=== PATIENT | male | born 1955 | race Caucasian/White ===

== ENCOUNTER 2017-04-24 09:24 | Emergency (ER) | payer OTHER ==
[~2017-04-24 09:24] MED LIST: FOLBIC TABLET1 EACH PO; GLUCOPHAGE850 MG PO; GLYBURIDE 5MG TA5 MG PO; HUMULIN N100 UNIT/1 SC; LACTINEX1 EACH PO; LANTUS100 UNIT/1 SC; LASIX20 MG PO; NORVASC5 MG PO; PRAVACHOL20 MG PO; TOPROL XL100 MG PO; TOUJEO SOLOSTAR SC; ZESTRIL20 MG PO
== END 2017-04-24 10:40 | disposition home or self-care (01) ==
LOC: FER 09:24
DX: S53.401A Unspecified sprain of right elbow, initial encounter (principal); E11.9 Type 2 diabetes mellitus without complications; I10 Essential (primary) hypertension; Z79.4 Long term (current) use of insulin; Z23 Encounter for immunization; Z86.14 Personal history of Methicillin resistant Staphylococcus aureus infection; Z95.1 Presence of aortocoronary bypass graft; W17.89XA Other fall from one level to another, initial encounter
CPT/HCPCS: 73060; 90471; 90715

== ENCOUNTER 2020-12-01 03:11 | Emergency (ER) | payer MEDICARE, OTHER ==
[2020-12-01 04:54] LABS: BASOPHIL 0.8 % (0-2); EOSINOPHIL 1.3 % (0-7); HCT 30.2 % (42.0-52.0); HGB 8.7 g/dl (13.2-18.0); LYMPHOCYTE 12.7 % (15-48); MCH 23.3 pg (25.0-31.0); MCHC 28.8 g/dL (32.0-36.0); NEUTROPHIL 75.4 % (41-80); NRBC 0; PLT 253 K/uL (150-400); RBC 3.73 M/uL (4.70-6.00); RDW 16.3 % (11.5-14.0)
[2020-12-01 05:07] LABS: ALBUMIN 3.3 g/dL (3.4-5.0); BILIRUBIN - TOTAL 0.4 mg/dL (0.2-1.0); BUN/CREAT RATIO (CALC) 24.8 RATIO; CREATININE 1.49 mg/dL (0.67-1.17); GLOBULIN (CALCULATION) 4.5 g/dL; POTASSIUM 4.5 mmol/L (3.5-5.1); TOTAL PROTEIN 7.8 g/dL (6.4-8.2)
[2020-12-01 05:15] LABS: LACTIC ACID 1.8 mmol/L (0.4-1.9)
[2020-12-01] MEDS ORDERED: KEFLEX250 MG PO (08:21)
== END 2020-12-01 09:22 | disposition home or self-care (01) ==
LOC: FER 03:11
PROVIDERS: Emergency Medicine Emergency Medical Services; Nurse Practitioner
DX: E11.649 Type 2 diabetes mellitus with hypoglycemia without coma (principal); E78.5 Hyperlipidemia, unspecified; I10 Essential (primary) hypertension; Z86.14 Personal history of Methicillin resistant Staphylococcus aureus infection; Z95.5 Presence of coronary angioplasty implant and graft; Z98.890 Other specified postprocedural states; Z79.899 Other long term (current) drug therapy; Z79.82 Long term (current) use of aspirin; Z88.8 Allergy status to other drugs, medicaments and biological substances; Z79.4 Long term (current) use of insulin
CPT/HCPCS: 36415; 71045; 73590; 80053; 83605; 84484; 85025; 86140; 87040; 93005; J3370; J7050

== ENCOUNTER 2021-03-15 17:09 | Emergency (ER) | payer MEDICARE, OTHER ==
[~2021-03-15 17:09] MED LIST changes: +KEFLEX250 MG PO
[2021-03-15 17:52] LABS: BASOPHIL 0.6 % (0-2); HCT 28.8 % (42.0-52.0); HGB 8.5 g/dl (13.2-18.0); LYMPHOCYTE 16.2 % (15-48); MCH 22.8 pg (25.0-31.0); MCHC 29.5 g/dL (32.0-36.0); MCV 77.4 fL (78.0-100.0); MONOCYTE 11.3 % (0-12); MPV 10.3 fL (6.0-9.5); NEUTROPHIL 69.5 % (41-80); NRBC 0; PLT 273 K/uL (150-400); RBC 3.72 M/uL (4.70-6.00); RDW 19.6 % (11.5-14.0)
[2021-03-15 17:57] LABS: INR 1.2 (0.9-1.2); PROTHROMBIN TIME 14.4 SECONDS (11.4-13.6); PTT 33.5 SECONDS (22.2-34.7)
[2021-03-15 18:08] LABS: ALBUMIN 3.4 g/dL (3.4-5.0); BILIRUBIN - TOTAL 0.4 mg/dL (0.2-1.0); BUN/CREAT RATIO (CALC) 13.8 RATIO; CREATININE 2.54 mg/dL (0.67-1.17); GLOBULIN (CALCULATION) 4.2 g/dL; PRO-BNP 2452 pg/mL (<125); TOTAL PROTEIN 7.6 g/dL (6.4-8.2)
[2021-03-15 18:43] LABS: IRON % SATURATION 12.7 %SAT (20-50)
[2021-03-15 19:28] LABS: BILIRUBIN NEGATIVE (NEGATIVE); BLOOD NEGATIVE Ery/uL (NEGATIVE); CLARITY CLEAR (CLEAR); COLOR YELLOW (YELLOW); GLUCOSE (U) NORMAL (NORMAL); LEUKOCYTES NEGATIVE Leu/uL (NEGATIVE); NITRITE NEGATIVE (NEGATIVE); PROTEIN NEGATIVE (NEGATIVE); UROBILINOGEN 0.2 mg/dL (0.2-1.0)
== END 2021-03-15 21:40 | disposition home or self-care (01) ==
LOC: FER 17:09
PROVIDERS: Emergency Medicine
DX: I13.0 Hypertensive heart and chronic kidney disease with heart failure and stage 1 through stage 4 chronic kidney disease, or unspecified chronic kidney disease (principal); I50.9 Heart failure, unspecified; N18.9 Chronic kidney disease, unspecified; E11.22 Type 2 diabetes mellitus with diabetic chronic kidney disease; D64.9 Anemia, unspecified; I25.810 Atherosclerosis of coronary artery bypass graft(s) without angina pectoris; Z95.5 Presence of coronary angioplasty implant and graft; Z20.822 Contact with and (suspected) exposure to COVID-19; Z85.46 Personal history of malignant neoplasm of prostate
CPT/HCPCS: 36415; 71046; 80053; 81003; 82728; 83540; 83550; 83880; 84443; 84484; 85025; 85610; 85730; 93005; J1940; U0002

== ENCOUNTER 2021-09-14 16:19 | Emergency (ER) | payer MEDICARE, OTHER ==
[~2021-09-14 16:19] MED LIST changes: +ASPIRIN EC81 MG PO; +HUMULIN R100 UNIT/2 SC; +PLAVIX75 MG PO
[2021-09-14 16:47] LABS: BASOPHIL 0.5 % (0-2); EOSINOPHIL 0.8 % (0-7); HCT 37.6 % (42.0-52.0); HGB 12.2 g/dl (13.2-18.0); LYMPHOCYTE 16.1 % (15-48); MCH 26.6 pg (25.0-31.0); MCHC 32.4 g/dL (32.0-36.0); MCV 82.1 fL (78.0-100.0); MONOCYTE 7.8 % (0-12); MPV 10.5 fL (6.0-9.5); NEUTROPHIL 74.2 % (41-80); NRBC 0; PLT 248 K/uL (150-400); RBC 4.58 M/uL (4.70-6.00); WBC 6.3 K/uL (4.0-10.5)
[2021-09-14 16:51] LABS: PROTHROMBIN TIME 12.6 SECONDS (11.8-13.4); PTT 29.5 SECONDS (24.4-34.7)
[2021-09-14 17:06] LABS: PRO-BNP 1040 pg/mL (<125)
[2021-09-14 17:25] LABS: LACTIC ACID 0.8 mmol/L (0.4-1.9)
[2021-09-14 17:37] LABS: ALBUMIN 3.4 g/dL (3.4-5.0); BILIRUBIN - TOTAL 0.2 mg/dL (0.2-1.0); BUN/CREAT RATIO (CALC) 26.3 RATIO; C-REACTIVE PROTEIN 2.5 mg/dL (<=0.90); CREATININE 1.18 mg/dL (0.67-1.17); GLOBULIN (CALCULATION) 4.4 g/dL; POTASSIUM 3.7 mmol/L (3.5-5.1); TOTAL PROTEIN 7.8 g/dL (6.4-8.2)
[2021-09-14] MEDS ORDERED: ONDANSETRON ODT4 MG PO (21:56)
== END 2021-09-14 22:08 | disposition home or self-care (01) ==
LOC: FER 16:19
PROVIDERS: Emergency Medicine
DX: K80.20 Calculus of gallbladder without cholecystitis without obstruction (principal); E11.649 Type 2 diabetes mellitus with hypoglycemia without coma; Z86.73 Personal history of transient ischemic attack (TIA), and cerebral infarction without residual deficits; Z20.822 Contact with and (suspected) exposure to COVID-19
CPT/HCPCS: 36415; 36600; 70450; 71250; 80053; 82550; 82728; 82803; 83605; 83615; 83690; 83735; 83880; 84145; 84484; 85025; 85610; 85730; 86140; 93005; J7030; U0002

== ENCOUNTER → 2021-09-25 | Day surgery (SDC) | payer MEDICARE, OTHER ==
[~2021-09-25] VITALS: Ht 175.3 cm; Wt 106.6 kg
[~2021-09-25] MED LIST changes: +CARVEDILOL 25MG25 MG PO; +COZAAR100 MG PO; +DEMADEX20 MG PO; +NEURONTIN300 MG PO; +ONDANSETRON ODT4 MG PO; +SERTRALINE HCL25 MG PO
== END | disposition home or self-care (01) ==
LOC: FAS 09-14 09:00
DX: K29.50 Unspecified chronic gastritis without bleeding (principal); D12.4 Benign neoplasm of descending colon; D12.3 Benign neoplasm of transverse colon; D12.5 Benign neoplasm of sigmoid colon; B96.81 Helicobacter pylori [H. pylori] as the cause of diseases classified elsewhere; K31.A19 Gastric intestinal metaplasia without dysplasia, unspecified site; D50.0 Iron deficiency anemia secondary to blood loss (chronic); I12.9 Hypertensive chronic kidney disease with stage 1 through stage 4 chronic kidney disease, or unspecified chronic kidney disease; E11.22 Type 2 diabetes mellitus with diabetic chronic kidney disease; N18.9 Chronic kidney disease, unspecified; E78.5 Hyperlipidemia, unspecified; I25.10 Atherosclerotic heart disease of native coronary artery without angina pectoris; J44.9 Chronic obstructive pulmonary disease, unspecified; I25.2 Old myocardial infarction; Z88.8 Allergy status to other drugs, medicaments and biological substances; Z79.82 Long term (current) use of aspirin; Z79.4 Long term (current) use of insulin; Z79.899 Other long term (current) drug therapy; Z95.818 Presence of other cardiac implants and grafts; Z95.1 Presence of aortocoronary bypass graft; Z85.46 Personal history of malignant neoplasm of prostate; Z80.0 Family history of malignant neoplasm of digestive organs; Z80.1 Family history of malignant neoplasm of trachea, bronchus and lung
CPT/HCPCS: J1610; J2704; J7120